=== PATIENT | male | born 1990 | race Caucasian/White ===

== ENCOUNTER 2017-01-15 07:24 | Emergency (ER) | payer BC ==
[~2017-01-15] VITALS: Ht 162.6 cm; Wt 70.1 kg
[~2017-01-15 07:24] MED LIST: ACETAMINOPHEN-1 EAC1 PO; FLOMAX0.4 MG PO; LORTAB 5-325 M1 EACH PO; NAPROSYN500 MG PO
[2017-01-15 08:34] LABS: EOSINOPHIL (%) 0.2 % (0-5); HEMATOCRIT 48.8 % (38.0-50.0); IMMATURE GRANULOCYTE (%) 0.3 % (0.0-0.7); INSTRUMENT ABS NEUTROPHIL CT 10.6 K/uL; LYMPHOCYTE COUNT 1.5 K/uL (1.0-2.8); MCH 29.7 PG (29.0-34.0); MCHC 35.5 G/DL (30.0-36.0); MCV 83.8 FL (86-99); MEAN PLAT.VOLUME 11.7 uM^3 (9.0-12.4); MONOCYTE (%) 9.2 % (3-12); MONOCYTE COUNT 1.2 K/uL (0-0.8); NEUTROPHIL (%) 79.2 % (45-76); NEUTROPHIL COUNT 10.6 K/uL (1.8-6.4); PLATELET COUNT 209 K/uL (156-360); RBC DIS.WIDTH-SD 36.8 % (39-53); RED BLOOD COUNT 5.82 M/uL (4.00-5.50); WHITE BLOOD COUNT 13.4 K/uL (4.1-10.2)
[2017-01-15 08:43] LABS: ADD MIUA? YES; BILIRUBIN NEGATIVE; BLOOD MODERATE; COLOR YELLOW ((YELLOW)); GLUCOSE (STRIP) NEGATIVE; KETONES 80; LEUKOCYTES NEGATIVE; NITRITE NEGATIVE; PROTEIN (STRIP) 30; UROBILINOGEN 0.2 MG/DL (0.2-1.0)
[2017-01-15 08:59] LABS: BACTERIA NONE SEEN /HPF; EPITHELIAL CELLS NONE SEEN /HPF; MUCUS TRACE /LPF; RED BLOOD CELLS 20-30 /HPF (0-5); WHITE BLOOD CELLS 0-5 /HPF (0-5)
[2017-01-15 09:00] LABS: CHLORIDE 102 mEq/L (99-109); SODIUM 135 mEq/L (136-147)
[2017-01-15 09:02] LABS: GLUCOSE 94 mg/dL (70-99)
[2017-01-15 09:03] LABS: ANION GAP 13 MEQ/L (2-14)
[2017-01-15 09:05] LABS: GFR ESTIMATE (CALCULATED) > 59 mL/min/ (58.99-99999)
[2017-01-15 09:06] LABS: UREA NITROGEN (BUN) 18 mg/dL (9-23)
[2017-01-15] MEDS ORDERED: FLOMAX0.4 MG PO (09:55)
[2017-01-15] MEDS ORDERED: PERCOCET 5/31 TABLET PO (09:55)
[2017-01-15] MEDS ORDERED: ZOFRAN4 MG PO (09:55)
[2017-01-15 10:08] VITALS: BP 148/55
== END 2017-01-15 10:10 | disposition home or self-care (01) ==
LOC: EME 07:24
PROVIDERS: Emergency Medicine
DX: N13.2 Hydronephrosis with renal and ureteral calculous obstruction (principal); Z87.442 Personal history of urinary calculi
CPT/HCPCS: 74176; 80048; 81003; 85025; 99281; 99284